=== PATIENT | female | born 1960 | race Caucasian/White ===

== ENCOUNTER 2025-01-19 14:08 | Outpatient (CLI) | payer MEDICARE, SELFPAY ==
[2025-01-19 15:54] LABS: Free T4 (Free Thyroxine) 1.07 ng/dl (0.78-2.19)
[2025-01-19 16:09] LABS: Thyroid Stimulating Hormone 1.34 uIU/mL (0.465-4.68)
[2025-01-19 16:28] LABS: Vitamin B12 255 pg/mL (239-931)
[2025-01-23 03:39] LABS: ALT (SGPT) P5P 15 IU/L (0-40); AST (SGOT) P5P 21 IU/L (0-40); Alpha 2-Macroglobulins, Qn 259 mg/dL (110-276); Apolipoprotein A-1 219 mg/dL (116-209); Bilirubin, Total 0.1 mg/dL (0.0-1.2); Cholesterol, Total 206 mg/dL (100-199); Fibrosis Score 0.04 (0.00-0.21); GGT 11 IU/L (0-60); Glucose 109 mg/dL (70-99); Haptoglobin 145 mg/dL (37-355); Steatosis Score 0.23 (0.00-0.40); Triglycerides 170 mg/dL (0-149)
[2025-01-27 05:26] LABS: 1,25 Dihydroxy Vitamin D 89 pg/mL (.); 1,25-Dihydroxy, Vitamin D-2 <10 pg/mL (.); 1,25-Dihydroxy, Vitamin D-3 89 pg/mL (.)
== END 2025-01-19 23:59 | disposition home or self-care (01) ==
LOC: LAB 14:10
PROVIDERS: PCP Internal Medicine; Visit Provider Internal Medicine Gastroenterology
DX: R53.83 Other fatigue (principal); K74.00 Hepatic fibrosis, unspecified; Z68.20 Body mass index [BMI] 20.0-20.9, adult
CPT/HCPCS: 36415; 82172; 82247; 82465; 82607; 82652; 82947; 82977; 83010; 83883; 84439; 84443; 84450; 84460; 84478

== ENCOUNTER 2025-03-22 11:13 | Day surgery (SDC) | payer MEDICARE, SELFPAY ==
[2025-03-19 10:30] VITALS: BMI 20.1
[2025-03-22 11:52] VITALS: BP 144/69; PULSE 68; RESP 18; TEMP 36.6; O2SAT 97; BMI 20.1
[2025-03-22] MEDS: LACTATED RINGERS 1000ML 1,000 ML 50 ML IV (12:09)
--- NOTE | 2025-03-22 12:42 | EXP.ANES.CKL ---
[facility] Disclaimer: The information contained in this section may have been updated after the patient was seen, as this information can be updated by other users. Medical History Hepatic fibrosis Autoimmune hepatitis GERD (gastroesophageal reflux disease) Surgical History H/O: hysterectomy Family History Mother Liver cancer Lung cancer Social History (Updated 03/22/25 @ 12:07 by Frances Beverly RN) Smoking Status: Never smoker alcohol intake: current alcohol intake frequency: holidays/special occasions only substance use type: denies use current occupational status: retired Travel in the last 8 weeks?: None Have you lived/traveled outside [place] in past 30 days?: No Contact w/someone who lives/traveled outside [place] past 30 days?: No Exposure to someone with infectious disease in past 14 days?: No Do you have a fever (greater than 100.4 F or 38 C)?: No Have you tested positive for COVID-19?: No Exposed to someone with COVID-19 in past 14 days?: No Do you have a sore throat?: No Do you have a cough?: No Do you have any weakness?: No Are you experiencing any nausea/vomitting?: No Do you have any diarrhea?: No Are you experiencing any unusual bleeding?: No Do you have any muscle aches/pain?: No Do you have any abdominal pain?: No Are you experiencing loss of taste or smell?: No [facility] Anesthesia Checklist Patient Identification Patient Identification: Arm Band and Verbal (Name & ) Structural Data Admitted From: Home Planned Operative Procedure/s: EGD Consent for Planned Operative Procedure(s) Verified: Yes Verified Documents: Surgical Consent NPO Status Verified Time NPO: 00:00 Chart Verification Results Verified: None Additional verifications Anesthesia Reactions: No Airway Assessment Mallampati Score:: Class II C-Spine Mobility Assessed: Yes TMJ Mobility Assessed: Yes Dentition: Good Dentition Neurological Assessment Level of Consciousness: Awake, Alert and Appropriate Hx Seizures: No Numbness or tingling in extremities: No Anesthesia Plan Anesthesia Risk discussed: Yes Anesthesia Plan: Verified ASA Class: II Anesthesia Type: MAC
--- NOTE | 2025-03-22 13:57 | EXP.HP ---
History of Present Illness *Admission Date: 03/22/25 *History of present illness: Mrs. Brambila is a 64-year-old female who is here for diagnostic upper endoscopy secondary to bloating, belching, gassiness and reflux. The patient did have a normal fecal elastase level. The patient has had regression of hepatic fibrosis and her MR elastography showed stage F2 fibrosis. She was diagnosed 9 years ago and has been on mycophenolate for 8 years with complete biochemical remission and normalization of her transaminases. She has been vaccinated. She is doing very well and her recent labs with Dr. Monique Deshpande showed AST 16, ALT 13, alkaline phosphatase 65 and total bilirubin 0.3. The patient has normal CBC with hemoglobin 14.1, hematocrit 41.7 and platelet count 255,000. The patient does have a history of chronic GERD and some functional GERD. She is on omeprazole and domperidone. This has helped to control her symptoms. She still gets moderate gassiness, bloating and belching. She also gets some left shoulder discomfort intermittently (possibly esophageal spasm) and she has had normal cardiac evaluation. The patient also has obstipation/incomplete defecation and has done well with psyllium Konsyl which she takes daily. The patient does report some intermittent diarrhea. Sometimes she will have greasy stools. [facility] Disclaimer: The information contained in this section may have been updated after the patient was seen, as this information can be updated by other users. Medical History Hepatic fibrosis Autoimmune hepatitis GERD (gastroesophageal reflux disease) Surgical History H/O: hysterectomy Family History Mother Liver cancer Lung cancer Social History (Updated 03/22/25 @ 12:07 by Frances Beverly RN) Smoking Status: Never smoker alcohol intake: current alcohol intake frequency: holidays/special occasions only substance use type: denies use current occupational status: retired Travel in the last 8 weeks?: None Have you lived/traveled outside [place] in past 30 days?: No Contact w/someone who lives/traveled outside [place] past 30 days?: No Exposure to someone with infectious disease in past 14 days?: No Do you have a fever (greater than 100.4 F or 38 C)?: No Have you tested positive for COVID-19?: No Exposed to someone with COVID-19 in past 14 days?: No Do you have a sore throat?: No Do you have a cough?: No Do you have any weakness?: No Are you experiencing any nausea/vomitting?: No Do you have any diarrhea?: No Are you experiencing any unusual bleeding?: No Do you have any muscle aches/pain?: No Do you have any abdominal pain?: No Are you experiencing loss of taste or smell?: No Review of Systems Review of Systems Review of systems (narrative): Negative *Cardiovascular Comments: Negative *Gastrointestinal Comments: Negative *Genitourinary Comments: Negative *Musculoskeletal Comments: Negative *Neurologic Comments: Negative Meds Home Medications and Allergies Home Medications ?Medication ?Instructions ?Recorded ?Confirmed ?Type [id number] 400 unit 400 unit PO DAILY PRN Stomach Upset 01/19/25 03/22/25 History tablet (Beano) amlodipine 10 mg tablet 10 mg PO DAILY 01/19/25 03/22/25 History mycophenolate mofetil 500 mg tablet 1,000 mg (2 x 500 mg) PO ONCE 90 01/19/25 03/22/25 Rx days #180 tabs omeprazole 40 mg capsule,delayed 40 mg PO DAILY 01/19/25 03/22/25 History release rosuvastatin 10 mg tablet 10 mg PO DAILY 01/19/25 03/22/25 History sertraline 100 mg tablet 50 mg PO DAILY 01/19/25 03/22/25 History topiramate 100 mg tablet 100 mg PO DAILY 01/19/25 03/22/25 History cyanocobalamin-liver extract tablet 1,000 tab PO DAILY 03/19/25 03/22/25 History New Prescriptions to Start Prescriptions: Allergies Allergy/AdvReac Type Severity Reaction Status Date / Time Penicillins Allergy Hives Verified 03/22/25 12:01 sulfamethoxazole (From Allergy Hives Verified 03/22/25 12:01 Bactrim) trimethoprim (From Bactrim) Allergy Hives Verified 03/22/25 12:01 Exam Data for Last 24 hours Vital signs and Labs for Last 24 Hours: Temp Pulse Resp BP Pulse Ox O2 Del Method 97.9 F 68 18 144/69 H 97 Room Air 03/22/25 11:52 03/22/25 11:52 03/22/25 11:52 03/22/25 11:52 03/22/25 11:52 03/22/25 11:52 I & O for Last 24 hours: Intake & Output 03/19/25 03/20/25 03/21/25 03/22/25 23:59 23:59 23:59 23:59 Weight 125 lb 125 lb *Routine HEENT Exam Head: Present normocephalic Eye: Present EOMI and PERRL ENT: Present mucous membranes moist *Routine Neck Exam Neck: Present supple *Routine Respiratory Exam Respiratory: Present CTA bilaterally *Routine Cardiovascular Exam Cardiovascular: Present RRR *Routine Abdominal Exam Abdominal: Present soft and normoactive bowel sounds; Absent tenderness *Routine Rectal Exam Rectal:: deferred *Routine Genitalia Exam Genitalia:: deferred *Routine Extremities Exam Extremities: Absent cyanosis, clubbing or edema *Routine Skin Exam Skin: Present warm; Absent rash *Routine Neurological Exam Neurological: Present alert and oriented X3 Assessment and Plan *Assessment and plan (1) Belching: Status: Acute Category: Medical Code(s): R14.2 - Eructation (2) Bloating: Status: Acute Category: Medical Code(s): R14.0 - Abdominal distension (gaseous) (3) GERD (gastroesophageal reflux disease): Status: Acute Category: Medical Code(s): K21.9 - Gastro-esophageal reflux disease without esophagitis (4) Fatty stools: Status: Acute Category: Medical Code(s): K90.9 - Intestinal malabsorption, unspecified (5) Diarrhea: Status: Acute Category: Medical Code(s): R19.7 - Diarrhea, unspecified Plan A/P: 1. Belching, bloating, gassiness, GERD, diarrhea with fatty stools (steatorrhea) is the preprocedural diagnosis. The patient will be anesthetized/sedated using MAC sedation. The patient has been seen and examined. Cardiac and lung assessment prior to the examination is stable. Proceed with planned diagnostic EGD.
--- NOTE | 2025-03-22 13:59 | [facility]H.PROCNOTE ---
[facility] Procedure Note Date: 03/22/25 Time: 14:17 Procedure Note:: Upper Endoscopy Procedure Report: Esophagogastroduodenoscopy with cold biopsies Endoscopost: Brandon Castaneda II, MD Referring Physician: Monique Deshpande MD Date of Procedure: March 22, 2025 Equipment: Olympus GIF 190 standard upper endoscope Sedation: MAC sedation Indications: Mrs. Brambila is a 64-year-old female who is here for diagnostic upper endoscopy secondary to bloating, belching, gassiness and reflux. The patient did have a normal fecal elastase level. The patient has had regression of hepatic fibrosis and her MR elastography showed stage F2 fibrosis. She was diagnosed 9 years ago and has been on mycophenolate for 8 years with complete biochemical remission and normalization of her transaminases. She has been vaccinated. She is doing very well and her recent labs with Dr. Monique Deshpande showed AST 16, ALT 13, alkaline phosphatase 65 and total bilirubin 0.3. The patient has normal CBC with hemoglobin 14.1, hematocrit 41.7 and platelet count 255,000. The patient does have a history of chronic GERD and some functional GERD. She is on omeprazole and domperidone. This has helped to control her symptoms. She still gets moderate gassiness, bloating and belching. She also gets some left shoulder discomfort intermittently (possibly esophageal spasm) and she has had normal cardiac evaluation. The patient also has obstipation/incomplete defecation and has done well with psyllium Konsyl which she takes daily. The patient does report some intermittent diarrhea. Sometimes she will have greasy stools. Procedure: Prior to the procedure, a history and physical exam was performed, and patient's medications and allergies were reviewed. The risks, benefits and alternatives of the sedation and procedure were discussed with the patient. All questions were answered and informed consent was obtained. The patient was brought to the procedure room. Patient identification and proposed procedure were verified by the physician and the nurse. The patient was placed in a left lateral decubitus position and the scope was passed under direct vision. Throughout the procedure, the patient's blood pressure, pulse, and oxygen saturations were monitored continuously. The upper GI endoscopy was accomplished without difficulty. The patient tolerated the procedure well. Findings: The scope was passed directly into the upper esophagus and advanced to the fourth portion of duodenum and proximal jejunum. A biopsy was taken from the proximal jejunum for disaccharidase assay. The proximal jejunum, post bulbar duodenum, ampulla and duodenal bulb were normal with normal mucosa and conniventes. Cold biopsies were taken from the first portion of duodenum to rule out celiac disease. The scope was withdrawn through a normal duodenal bulb and pylorus into the stomach. There was some mild linear reactive gastropathy of the antrum. Cold biopsies were taken from the antrum and lesser curvature to rule out H. pylori. The body and fundus of the stomach were normal. Upon retroflexion there was no hiatal hernia. The scope was then withdrawn into the esophagus. There was no evidence of reflux esophagitis or Morales's. There were no esophageal varices. There were tertiary contractions and mild esophageal dysmotility. The remainder of the esophageal mucosa was normal. Impression: 1. Nonerosive GERD with mild esophageal dysmotility 2. Mild linear reactive gastropathy of antrum Plan: I will follow up the biopsies and disaccharidase assay. I had recommended [id number]-[id number] herbal Iberogast. If her disaccharidase assay is normal, I would consider a broad digestive enzyme or Creon. I will discuss the findings with the patient and family.
[2025-03-22 14:24] VITALS: BP 148/93; PULSE 91; RESP 16; TEMP 36.1; O2SAT 96
[2025-03-22 14:34] VITALS: BP 154/87; PULSE 100; RESP 16; O2SAT 96
[2025-03-22 14:43] VITALS: BP 122/82; PULSE 91; RESP 16; O2SAT 96
[2025-03-22 14:49] VITALS: BP 112/59; PULSE 85; RESP 16; O2SAT 97
[2025-03-26 14:11] LABS: Disclaimer Notes (.); Interpretation Notes (.); Lactase 54.75 (>/= 14.0); Maltase 403.92 (>/= 110.0); Palatinase 28.52 (>/= 8.5); Reference Notes (.); Sucrase 126.16 (>/= 25.0)
== END 2025-03-22 14:54 | disposition home or self-care (01) ==
PROVIDERS: PCP Internal Medicine; Visit Provider Internal Medicine Gastroenterology
PROC: 0DJ08ZZ Inspection of Upper Intestinal Tract, Via Natural or Artificial Opening Endoscopic (ICD-10-PCS; CPT 43239; principal; 2025-03-22 13:30)
DX: K21.9 Gastro-esophageal reflux disease without esophagitis (principal); K31.9 Disease of stomach and duodenum, unspecified; Z88.0 Allergy status to penicillin; Z88.2 Allergy status to sulfonamides; Z79.899 Other long term (current) drug therapy
CPT/HCPCS: 43239; 82657; J2003; J2704; J7120